=== PATIENT | male | born 1965 | race Caucasian/White ===

== ENCOUNTER → 2020-03-17 11:19 | Outpatient (CLI) | payer BC, SELFPAY ==
[2020-03-17 12:42] LABS: Coronavirus 19 IgG Antibody Negative (Negative); Coronavirus 19 IgM Antibody Negative (Negative)
== END ==
PROVIDERS: Visit Provider Surgery
DX: Z01.89 Encounter for other specified special examinations (principal); Z12.11 Encounter for screening for malignant neoplasm of colon
CPT/HCPCS: 36415; 86328

== ENCOUNTER 2020-03-18 09:03 | Day surgery (SDC) | payer BC, SELFPAY ==
[2020-03-14 15:58] VITALS: BMI 32.9
[2020-03-18 09:44] VITALS: BP 147/89; PULSE 82; RESP 18; TEMP 36.4; O2SAT 96
--- NOTE | 2020-03-18 10:18 | HMH.ANESCL ---
[facility] Anesthesia Checklist - Patient Identification Patient Identification: Arm Band, Verbal (Name & ) - Structural Data Admitted From: Home Planned Operative Procedure/s: colon Consent for Planned Operative Procedure(s) Verified: Yes Verified Documents: History and Physical - NPO Status Verified Time NPO: 00:00 - Additional verifications Patient : No Anesthesia Reactions: No Hx Blood Transfusions: No Blood Transfusion Reaction: No Cephalosporin Allergy: No Previous Colonoscopy: No - Cardiovascular Assessment Heart Sounds: S1 & S2 Pulse Strength: Baseline Pulse Rhythm: Regular Peripheral Edema: No - Airway Assessment C-Spine Mobility Assessed: Yes TMJ Mobility Assessed: Yes Dentition: Partials - Neurological Assessment Level of Consciousness: Awake, Alert, Appropriate Hx Seizures: No Numbness or tingling in extremities: No - Anesthesia Plan Anesthesia Risk discussed: Yes Anesthesia Plan: Verified ASA Class: II Anesthesia Type: MAC [facility] History I have reviewed the patient's past medical history: Yes Medical History: Reports:: Diabetes Mellitus Type 2, Hyperlipidemia, Hypertension Denies:: Cancer, Diabetes Mellitus Type 1, Internal Pacemaker, MRSA, Seizures *Have you ever received a pneumonia vaccine?: Yes *Have you received a flu vaccine this season?: No Anesthesia experience/problems:: none Other Surgeries: Yes: No Previous Surgery. No: Pacemaker Amputation: No Fractures: Yes - *Social History Last grade of school completed: High school graduate Smoking Status: Never smoker Alcohol Intake: current Alcohol Intake Frequency:: 0-2 drinks per day Substance Use Type: other *Occupational Status:: employed Housing: house Household Members: spouse *Travel in the last 8 weeks: None Family Hx:: Asthma, Cancer, Kidney Disease, Hypertension, Hyperlipidemia
[2020-03-18 10:52] VITALS: O2SAT 96
--- NOTE | 2020-03-18 11:24 | HMH.SCOPE ---
- Procedure: Date: 03/18/20 Patient Date of :: 1965 Procedure Performed:: Total colonoscopy to terminal ileum with polypectomy by snare and biopsy forceps Indications:: Patient is a very pleasant 54-year-old male referred by Dr. Mejia for initial screening colonoscopy. He denies any symptomatology or family history of colon cancer. Performing Provider:: Alessio Berry MD Referring Provider:: Maikol Mejia MD Sedation:: MAC sedation Procedure:: Patient was taken to endoscopy procedure room. He was positioned in a lateral decubitus position. Adequate intravenous sedation was achieved with anesthesia titration of propofol. Digital examination was performed which revealed normal sphincter tone. Variable stiffness Olympus colonoscope was inserted via the anus and advanced to the cecum with minor difficulty due to floppiness of the sigmoid colon. Ileocecal valve and appendiceal orifice were clearly identified. Colonoscope was advanced a short distance into the terminal ileum which appeared grossly normal. Colonoscope was slowly withdrawn through the colon with careful surveillance. Colonic preparation was good and visualization was good. In the proximal transverse colon there was an irregular somewhat pedunculated approximately 10 mm polyp removed with cold cutting snare. Hemoclip was placed at the polypectomy site. In the sigmoid colon there is a diminutive polyp removed with biopsy forceps. This appeared hyperplastic. There is a focal area of pigmentation which was biopsied. In the rectum there was a diminutive possible lymphoid aggregate which was removed and sent as rectal polyp. Retroflexion within the rectum revealed no evidence of any pathologic internal hemorrhoids. Colonoscope was withdrawn. Findings:: 10 mm pedunculated irregular proximal transverse colon polyp removed with cold cutting snare with clip placement Focal area of pigmentation of the sigmoid colon biopsied Diminutive hyperplastic appearing sigmoid polyp removed with biopsy forceps Possible lymphoid aggregate appearing polyp in the rectum removed with biopsy forceps Rare diverticuli within the sigmoid colon Recommendations:: Likely repeat colonoscopy 3 years Complications:: None immediately apparent Estimated blood obtained (mL): 3
[2020-03-18 11:25] VITALS: BP 105/63; PULSE 84; RESP 18; TEMP 36.6; O2SAT 91
[2020-03-18 11:35] VITALS: BP 132/80; PULSE 68; RESP 18; TEMP 36.6; O2SAT 99
[2020-03-18 11:45] VITALS: BP 119/78; PULSE 68; RESP 18; TEMP 36.6; O2SAT 99
[2020-03-18 11:55] VITALS: BP 121/82; PULSE 66; RESP 18; TEMP 36.6; O2SAT 98
[2020-04-16 12:26] LABS: POC Glucose,Bedside 122 (70-110)
== END 2020-03-18 11:55 | disposition home or self-care (01) ==
LOC: OUTP 09:05
PROVIDERS: PCP Family Medicine; Visit Provider Surgery
PROC: 0DJD8ZZ Inspection of Lower Intestinal Tract, Via Natural or Artificial Opening Endoscopic (ICD-10-PCS; CPT 45385; principal; 2020-03-18 10:00)
DX: Z12.11 Encounter for screening for malignant neoplasm of colon (principal); K63.5 Polyp of colon; K57.30 Diverticulosis of large intestine without perforation or abscess without bleeding; K62.1 Rectal polyp; Z79.84 Long term (current) use of oral hypoglycemic drugs; Z79.899 Other long term (current) drug therapy; E11.9 Type 2 diabetes mellitus without complications; I10 Essential (primary) hypertension; E78.5 Hyperlipidemia, unspecified; Z80.9 Family history of malignant neoplasm, unspecified; Z82.49 Family history of ischemic heart disease and other diseases of the circulatory system; Z83.438 Family history of other disorder of lipoprotein metabolism and other lipidemia
CPT/HCPCS: 45385; 45380; 82962

== ENCOUNTER → 2021-02-11 10:12 | Outpatient (CLI) | payer BC, SELFPAY ==
--- NOTE | 2021-02-11 10:19 | XR_ITS ---
PROCEDURE: XR ANKLE LT MIN 3V CLINICAL INDICATION: LT ANKLE SPRAIN COMPARISON: No exams were available for comparison FINDINGS: No fracture or dislocation. No lytic or blastic change. There is normal mineralization. The joint spaces are well-preserved. No significant degenerative/arthritic changes. No erosive changes evident. Other findings:There is a prominent Achilles enthesophyte and a small calcaneal spur. A faint calcification is present along the medial aspect of the distal fibula and is of questionable clinical significance not in the suspected location for an avulsion fracture. IMPRESSION: Soft tissue swelling otherwise negative Dictated by: Avery Nichols MD 02/11/2021 11:04 Avery Nichols MD in [place] 02/11/2021 11:04
== END ==
PROVIDERS: PCP Family Medicine; Visit Provider Family Medicine
DX: S93.432A Sprain of tibiofibular ligament of left ankle, initial encounter (principal)
CPT/HCPCS: 73610

== ENCOUNTER → 2022-05-19 12:38 | Outpatient (CLI) | payer BC, SELFPAY ==
--- NOTE | 2022-05-19 12:44 | XR_ITS ---
FINAL REPORT CLINICAL HISTORY: RT LATERAL FOOT PAIN FINDINGS: 3 views of the right foot were obtained. There is no acute fracture or dislocation. There are mild degenerative changes. Calcaneal spurs are present. The soft tissues are unremarkable. IMPRESSION: Mild degenerative change. Reviewed, Interpreted and Dictated by Alessio Ha III, MD Transcribed by Tavo Tuttle Authenticated and [facility]
== END ==
PROVIDERS: PCP Family Medicine; Visit Provider Family Medicine
DX: M79.671 Pain in right foot (principal)
CPT/HCPCS: 73630